=== PATIENT | male | born 1975 | race African-American/Black ===

== ENCOUNTER 2024-04-27 17:54 | Inpatient (IN) | payer OTHER ==
[~2024-04-27] VITALS: Ht 185.4 cm; Wt 124.7 kg
[2024-04-27] VITALS (11 sets, daily range): BP systolic 125–168; BP diastolic 60–102; PULSE 79–94; RESP 17–24; TEMP 96.3; O2SAT 100
[2024-04-27 18:46] LABS: ABG HCO3 4.6 mmol/L (21.0-28.0); ABG PCO2 < 15 mmHg (35-48); ABG PH 7.138 (7.350-7.450); DEVICE COMMENT RR RN OSCAR; VENT MODE, BG ROOMAIR (ROOM AIR)
[2024-04-27 18:48] LABS: BASOPHILS # (AUTO) 0.03 K/uL (0.00-0.20); BASOPHILS % (AUTO) 0.2 % (0.0-5.0); HEMATOCRIT 52.1 % (42-54); IMMATURE GRANULOCYTE ABSOLUTE 0.07 K/uL (0-1); LYMPHOCYTES # (AUTO) 1.1 K/uL (1.0-4.8); LYMPHOCYTES % (AUTO) 8.8 % (21.0-51.0); MEAN CORPUSCULAR HEMOGLOBIN 30.7 pg (27.0-33.0); MEAN CORPUSCULAR HGB CONC 33.2 g/dL (32.0-36.0); MEAN CORPUSCULAR VOLUME 92.4 fL (79-99); MONOCYTES # (AUTO) 0.6 K/uL (0.1-1.0); NEUTROPHILS # (AUTO) 10.6 K/uL (1.8-7.7); NEUTROPHILS % (AUTO) 85.4 % (40.0-77.0); PLATELET COUNT (AUTO) 290 K/uL (130-400); RED BLOOD CELL COUNT(AUTO) 5.64 MIL/uL (4.50-6.20); RED CELL DISTRIBUTION WIDTH 13.8 % (11.0-15.5); WHITE BLOOD COUNT (AUTO) 12.4 K/uL (4.8-10.8)
[2024-04-27] MEDS: ASPIRIN 325MG TAB PO ONE (18:52)
[2024-04-27] MEDS: NITROGLYCERIN 0.4 MG SL TAB SL PRN (18:52)
[2024-04-27 19:05] LABS: CREATININE 3.1 mg/dL (0.5-1.3)
[2024-04-27 19:19] LABS: B-TYPE NATRIURETIC PEPTIDE 7 pg/mL (0-100)
[2024-04-27] MEDS: morPHINE 4 MG SYG IVP ONE (19:26)
[2024-04-27] MEDS: ONDANSETRON 4MG INJ IVP ONE (19:26)
[2024-04-27] MEDS: [UNRECOGNIZED DRUG - OTHER] IV ONE (19:26)
[2024-04-27] MEDS: SODIUM BICARB 50MEQ 50ML VIAL IV ONE (19:39)
[2024-04-27] MEDS: ZOSYN 3.375GM +NS 50ML IVPB ONE (19:39)
[2024-04-27] MEDS: INSULIN humuLIN R 100 UNIT/ML 3ML IV ONE ×3 (19:48→23:10)
[2024-04-27] MEDS ORDERED: DEXTROSE 50%-WATER 25 GM/50 ML VIAL IV ONE (20:00)
[2024-04-27] MEDS ORDERED: INSULIN REGULAR, HUMAN 3ML 100 UNIT in 0.9%NACL 100ML 99 ML IV SCH (20:05)
[2024-04-27 20:12] LABS: ADD UA MICROSCOPIC YES; APPEARANCE,URINE CLEAR (CLEAR); BILIRUBIN,URINE NEGATIVE (NEGATIVE); COLOR,URINE LIGHT-YELLOW (YELLOW); GLUCOSE, URINE (UA) >=1000 mg/dL (NEGATIVE); KETONES,URINE >=80 mg/dL (NEGATIVE); LEUKOCYTE ESTERASE ,URINE NEGATIVE Leu/uL (NEGATIVE); NITRATE,URINE NEGATIVE (NEGATIVE); PROTEIN,URINE 20 mg/dL (NEGATIVE); UROBILINOGEN,URINE 0.2 mg/dL (0.2-1.0)
[2024-04-27] MEDS: CALCIUM GLUC 1GM 1 GM in 0.9%NACL 100ML 100 ML IV ONE (20:14)
[2024-04-27 20:15] LABS: BACTERIA,URINE RARE /HPF (None Seen); MUCUS,URINE RARE LPF (None Seen); RBC,URINE 0-1 /HPF (0-1); SQUAMOUS EPITHELIAL CELL,UR RARE /HPF (0-2); YEAST,URINE BUDDING RARE /HPF (None Seen)
[2024-04-27] MEDS: kayEXALate 15GM/60ML PO SCH (20:23)
[2024-04-27] MEDS: CALCIUM GLUC 1GM/10ML VIAL ONE (20:24)
[2024-04-27] MEDS ORDERED: ONDANSETRON 4MG INJ IVP PRN (20:30)
[2024-04-27] MEDS ORDERED: acetaMINOPHEN 325 MG TAB PO PRN ×2 (20:30)
[2024-04-27] MEDS ORDERED: 0.9%NACL 1000ML 2,000 ML IV SCH (20:30)
[2024-04-27] MEDS: INSULIN REGULAR, HUMAN 3ML 100 UNIT in 0.9%NACL 100ML 99 ML IV STA (20:45)
[2024-04-27] MEDS: DEXTROSE 50%-WATER 50 ML DISP.SYRIN IV ONE (20:49)
[2024-04-27] MEDS: ALBUTEROL 0.083% 2.5 MG/3 ML INH IH SCH (20:51)
[2024-04-27] MEDS: INSULIN GLARgine 100 UNITS/ML 10 ML VIAL SQ SCH (23:14)
[2024-04-27 23:26] LABS: CREATININE 2.6 mg/dL (0.5-1.3); POTASSIUM 4.8 mmol/L (3.5-5.1)
[2024-04-28] VITALS (52 sets, daily range): BP systolic 131–193; BP diastolic 53–110; PULSE 69–106; RESP 6–39; TEMP 97–98.9; O2SAT 96–100
[2024-04-28] MEDS: SODIUM BICARB 50MEQ 50ML VIAL IV ONE
[2024-04-28 00:03] LABS: AMPHET/METH SCREEN,URINE NEGATIVE (NEGATIVE); BARBITURATE SCREEN, URINE NEGATIVE (NEGATIVE); BENZODIAZEPINES SCREEN,URINE NEGATIVE (NEGATIVE); CANNABINOID SCREEN,URINE NEGATIVE (NEGATIVE); COCAINE SCREEN,URINE NEGATIVE (NEGATIVE); OPIATE SCREEN,URINE NEGATIVE (NEGATIVE); PHENCYCLIDINE SCREEN,URINE NEGATIVE (NEGATIVE)
[2024-04-28 01:23] LABS: SARS-CoV-2, RNA, NAAT NEGATIVE SARS CoV-2 (NEGATIVE)
[2024-04-28] MEDS: ONDANSETRON 4MG INJ IVP PRN (01:28)
[2024-04-28 01:29] LABS: INFLUENZA TYPE A Negative For Type A (NEGATIVE); INFLUENZA TYPE B Negative For Type B (NEGATIVE)
[2024-04-28] MEDS: HEParin 5,000 UNIT VIAL SQ SCH (01:48)
[2024-04-28 02:19] LABS: ABG OXYGEN SATURATION 72.9 % (94.0-98.0); BASE EXCESS,VENOUS BLOOD GAS -15.8 (-2.0-3.0); HCO3,VENOUS BLOOD GAS 9.8 (22.0-29.0); PCO2,VENOUS BLOOD GAS 25 (38-54); PO2,VENOUS BLOOD GAS 40.5 mmHg (23.0-48.0); VENT MODE, BG NC,28 (ROOM AIR)
[2024-04-28 03:39] LABS: HEMATOCRIT 41.8 % (42-54); MEAN CORPUSCULAR HGB CONC 34.2 g/dL (32.0-36.0); MEAN CORPUSCULAR VOLUME 90.5 fL (79-99); RED BLOOD CELL COUNT(AUTO) 4.62 MIL/uL (4.50-6.20); WHITE BLOOD COUNT (AUTO) 15.8 K/uL (4.8-10.8)
[2024-04-28 04:10] LABS: CREATININE 2.2 mg/dL (0.5-1.3); MAGNESIUM 2.8 mg/dL (1.80-2.40); PHOSPHORUS 2.7 mg/dL (2.5-4.9); POTASSIUM 4.5 mmol/L (3.5-5.1); THYROID STIMULATING HORMONE 0.37 uIU/mL (0.36-3.74)
[2024-04-28] MEDS: PANTOPRAZOLE 40 MG/VIAL IVP SCH (08:30)
[2024-04-28] MEDS ORDERED: INSULIN REGULAR, HUMAN 3ML 100 UNIT in 0.9%NACL 100ML 100 ML IV SCH (08:30)
[2024-04-28] MEDS ORDERED: 0.9%NACL 1000ML 1,000 ML IV SCH (08:30)
[2024-04-28] MEDS ORDERED: MAGNESIUM 2GM PREMIX 50ML 50 ML IV SCH (08:30)
[2024-04-28] MEDS ORDERED: HYDROcodone/APAP 5/325 1 TAB TABLET PO PRN (08:30)
[2024-04-28] MEDS ORDERED: POTASSIUM CHLORIDE 10MEQ/100ML 100 ML IV PRN (08:30)
[2024-04-28] MEDS: ASPIRIN 81MG CHEW TAB PO SCH (08:31)
[2024-04-28] MEDS ORDERED: PANTOPRAZOLE 40 MG TAB DR PO SCH (09:00)
[2024-04-28] MEDS: D5W-1/2 NS/20MEQ KCL 1,000 ML IV SCH (09:08)
[2024-04-28] MEDS: INSULIN GLARgine 100 UNITS/ML 10 ML VIAL SQ SCH ×2 (09:16→21:21)
[2024-04-28 09:28] LABS: POTASSIUM 3.7 mmol/L (3.5-5.1)
[2024-04-28] MEDS: HYDROcodone/APAP 5/325 1 TAB TABLET PO PRN (09:28)
[2024-04-28 09:47] LABS: BASE EXCESS,VENOUS BLOOD GAS -7.2 (-2.0-3.0); PCO2,VENOUS BLOOD GAS 31 (38-54); PH,VENOUS BLOOD GAS 7.354 (7.320-7.430); PO2,VENOUS BLOOD GAS 67.5 mmHg (23.0-48.0); VENT MODE, BG VBG ON RA (ROOM AIR)
[2024-04-28] MEDS ORDERED: CLOP-31 PO (13:32)
[2024-04-28] MEDS ORDERED: CICL6.1H IH (13:32)
[2024-04-28] MEDS ORDERED: CARV6.2579 PO (13:32)
[2024-04-28] MEDS ORDERED: HYDR12.54 PO (13:32)
[2024-04-28] MEDS ORDERED: FENO145T PO (13:32)
[2024-04-28] MEDS ORDERED: AMLO-258 PO (13:32)
[2024-04-28] MEDS ORDERED: ASPI-1197 PO (13:32)
[2024-04-28] MEDS ORDERED: ATOR-2 PO (13:32)
[2024-04-28] MEDS ORDERED: ALBU90AE IH (13:32)
[2024-04-28] MEDS ORDERED: POTASSIUM CHLORIDE 10% ELIXIR 20 MEQ/15 ML UDCUP PO PRN (15:00)
[2024-04-28] MEDS ORDERED: POTASSIUM CHLORIDE 20MEQ/100ML 100 ML IV PRN (15:00)
[2024-04-28] MEDS ORDERED: MAGNESIUM 2GM PREMIX 50ML 50 ML IV PRN (15:00)
[2024-04-28] MEDS: INSULIN humuLIN R 100 UNIT/ML 3ML IV ONE (16:34)
[2024-04-28] MEDS: INSULIN humuLIN R 100 UNIT/ML 3ML SQ SCH (16:35)
[2024-04-28] MEDS: CEFTRIAXONE 2GM VIAL IVPB SCH (18:20)
[2024-04-28] MEDS: INSULIN GLARgine 100 UNITS/ML 10 ML VIAL SQ ONE (18:20)
[2024-04-28] MEDS: atorVAStatin 40 MG TABLET PO SCH (21:19)
[2024-04-28] MEDS: INSULIN humuLIN R 100 UNIT/ML 3ML SQ STA (23:55)
[2024-04-29] VITALS (15 sets, daily range): BP systolic 117–177; BP diastolic 49–103; PULSE 62–96; RESP 12–24; TEMP 97.9–98.5; O2SAT 97–98
[2024-04-29 05:32] LABS: HEMATOCRIT 36.3 % (42-54); MEAN CORPUSCULAR HEMOGLOBIN 31.1 pg (27.0-33.0); MEAN CORPUSCULAR HGB CONC 34.4 g/dL (32.0-36.0); MEAN CORPUSCULAR VOLUME 90.3 fL (79-99); RED BLOOD CELL COUNT(AUTO) 4.02 MIL/uL (4.50-6.20); RED CELL DISTRIBUTION WIDTH 14.7 % (11.0-15.5); WHITE BLOOD COUNT (AUTO) 10.1 K/uL (4.8-10.8)
[2024-04-29 05:41] LABS: CREATININE 1.6 mg/dL (0.5-1.3); MAGNESIUM 2.6 mg/dL (1.80-2.40); POTASSIUM 3.7 mmol/L (3.5-5.1)
[2024-04-29] MEDS ORDERED: NON-FORMULARY MEDICATION 1 EACH (Amlodipine Besylate 10 MG) PO SCH (09:00)
[2024-04-29] MEDS: amLODIPine 5 MG TAB PO SCH (09:23)
[2024-04-29] MEDS: CLOPIDOGREL 75MG TAB PO SCH (09:24)
[2024-04-29] MEDS: carVEDIlol 6.25 MG TABLET PO SCH (09:24)
[2024-04-29] MEDS: 1/2 NS 1000ML 1,000 ML IV SCH (15:01)
[2024-04-29] MEDS: INSULIN humuLIN R 100 UNIT/ML 3ML SQ SCH (17:22)
[2024-04-30] VITALS (7 sets, daily range): BP systolic 117–152; BP diastolic 55–74; PULSE 58–71; RESP 18–20; TEMP 97.8–98.6; O2SAT 95–98
[2024-04-30] MEDS: HEParin 5,000 UNIT VIAL SQ SCH (02:45)
[2024-04-30 05:28] LABS: BASOPHILS # (AUTO) 0.02 K/uL (0.00-0.20); BASOPHILS % (AUTO) 0.4 % (0.0-5.0); EOSINOPHILS # (AUTO) 0.09 K/uL (0.00-0.70); EOSINOPHILS % (AUTO) 1.6 % (0.0-8.0); HEMATOCRIT 31.1 % (42-54); IMMATURE GRANULOCYTE ABSOLUTE 0.02 K/uL (0-1); LYMPHOCYTES # (AUTO) 2.8 K/uL (1.0-4.8); LYMPHOCYTES % (AUTO) 50.5 % (21.0-51.0); MEAN CORPUSCULAR HEMOGLOBIN 30.9 pg (27.0-33.0); MEAN CORPUSCULAR HGB CONC 33.4 g/dL (32.0-36.0); MEAN CORPUSCULAR VOLUME 92.3 fL (79-99); MONOCYTES # (AUTO) 0.5 K/uL (0.1-1.0); MONOCYTES % (AUTO) 8.8 % (3.0-13.0); NEUTROPHILS # (AUTO) 2.1 K/uL (1.8-7.7); NEUTROPHILS % (AUTO) 38.3 % (40.0-77.0); PLATELET COUNT (AUTO) 124 K/uL (130-400); RED BLOOD CELL COUNT(AUTO) 3.37 MIL/uL (4.50-6.20); RED CELL DISTRIBUTION WIDTH 14.4 % (11.0-15.5); WHITE BLOOD COUNT (AUTO) 5.6 K/uL (4.8-10.8)
[2024-04-30 05:35] LABS: CREATININE 1.2 mg/dL (0.5-1.3); POTASSIUM 3.3 mmol/L (3.5-5.1)
[2024-04-30] MEDS: INSULIN humuLIN R 100 UNIT/ML 3ML SQ SCH ×3 (06:23→16:47)
[2024-04-30] MEDS: MAGNESIUM CITRATE 296 ML SOLUTION PO ONE (09:31)
[2024-04-30] MEDS: LACTULOSE 20 GM/30 ML UDCUP PO ONE (10:12)
[2024-04-30] MEDS ORDERED: INSULIN humuLIN R 100 UNIT/ML 3ML SQ SCH (11:30)
[2024-04-30] MEDS: KCL 20 MEQ ERTAB PO ONE (14:26)
[2024-05-01] VITALS: BP 121/61; PULSE 55; RESP 18; TEMP 99.1
[2024-05-01 04:00] VITALS: BP 144/90; PULSE 77; RESP 20; TEMP 97.7
[2024-05-01 05:34] LABS: POTASSIUM 3.3 mmol/L (3.5-5.1)
[2024-05-01] MEDS: KCL 20 MEQ ERTAB PO PRN (06:42)
[2024-05-01] MEDS: INSULIN humuLIN R 100 UNIT/ML 3ML SQ SCH ×2 (06:42→12:55)
[2024-05-01 08:00] VITALS: BP 117/73; PULSE 66; RESP 19; TEMP 97.8
[2024-05-01 12:00] VITALS: BP 114/55; PULSE 60; RESP 18; TEMP 98.1
[2024-05-01] MEDS ORDERED: INSULIN humuLIN R 100 UNIT/ML 3ML SQ SCH (16:30)
== END 2024-05-01 14:20 | DRG 871 ==
LOC: EEVIPCON 17:54 → EDH 17:54 → EDHIP 20:02 → 2BH 21:06 → 3DH 04-29 12:00
PROVIDERS: ADMIT Internal Medicine Infectious Disease; ATTEND Internal Medicine Infectious Disease
DX: A41.9 Sepsis, unspecified organism (principal); E11.10 Type 2 diabetes mellitus with ketoacidosis without coma; N17.9 Acute kidney failure, unspecified; Z20.822 Contact with and (suspected) exposure to COVID-19; R65.20 Severe sepsis without septic shock; E86.0 Dehydration; E87.8 Other disorders of electrolyte and fluid balance, not elsewhere classified; J45.909 Unspecified asthma, uncomplicated; Z68.35 Body mass index [BMI] 35.0-35.9, adult; E78.00 Pure hypercholesterolemia, unspecified; E66.01 Morbid (severe) obesity due to excess calories; E87.5 Hyperkalemia; I25.10 Atherosclerotic heart disease of native coronary artery without angina pectoris; I25.2 Old myocardial infarction; K59.00 Constipation, unspecified; Z79.4 Long term (current) use of insulin; Z95.5 Presence of coronary angioplasty implant and graft; Z83.3 Family history of diabetes mellitus
CPT/HCPCS: 36415; 36600; 71045; 80048; 80305; 81001; 82010; 82435; 82550; 82803; 82947; 82948; 83036; 83605; 83735; 83880; 84100; 84132; 84145; 84295; 84443; 84484; 85025; 85027; 85378; 87040; 87635; 87804; 87880; 93005; 93306; 93356; 93970; 94640; 99291; G0378; J0612; J0696; J1644; J1815; J2270; J2405; J2470; J2543; J3480; J3490; J7030; J7070